=== PATIENT | female | born 1985 | race Caucasian/White ===

== ENCOUNTER 2020-11-18 11:39 | Emergency (ER) | payer MEDICAID ==
[~2020-11-18] VITALS: Ht 162.6 cm; Wt 81.8 kg
[2020-11-18 12:18] VITALS: BP 113/78
[2020-11-18] MEDS ORDERED: ALBU6.7H9 INH (12:18)
[2020-11-18] MEDS ORDERED: PRED20TA PO (12:18)
== END 2020-11-18 13:22 | disposition home or self-care (01) ==
LOC: ER 11:39
DX: J06.9 Acute upper respiratory infection, unspecified (principal); Z20.822 Contact with and (suspected) exposure to COVID-19; R05 Cough; R50.9 Fever, unspecified; R51.9 Headache, unspecified; F41.9 Anxiety disorder, unspecified; Z72.0 Tobacco use; Z88.1 Allergy status to other antibiotic agents; Z88.0 Allergy status to penicillin; Z79.899 Other long term (current) drug therapy
CPT/HCPCS: 36415; 71045; 99283

== ENCOUNTER 2024-07-02 19:57 | Emergency (ER) | payer MEDICAID ==
[~2024-07-02] VITALS: Ht 162.6 cm; Wt 62.2 kg
[~2024-07-02 19:57] MED LIST: ALBU6.7H14 INH
[2024-07-02] MEDS ORDERED: HYDR-3965 PO (21:41)
[2024-07-02 21:51] VITALS: BP 118/65; PULSE 84; RESP 18; TEMP 98.6; O2SAT 99
== END 2024-07-02 21:54 | disposition home or self-care (01) ==
LOC: ER 19:58
DX: S60.222A Contusion of left hand, initial encounter (principal); Z88.0 Allergy status to penicillin; W19.XXXA Unspecified fall, initial encounter; Y93.K1 Activity, walking an animal; Y92.89 Other specified places as the place of occurrence of the external cause; Y99.8 Other external cause status
CPT/HCPCS: 29125; 73130; 99283